=== PATIENT | female | born 1980 ===

== ENCOUNTER 2023-07-26 12:29 | Outpatient (CLI) | payer BC, SELFPAY ==
--- NOTE | ~2023-07-26 | MR_ITS ---
MRI of the right knee Clinical history: Medial meniscal tear Technique: Coronal proton density and proton density-weighted images, sagittal proton-density and T2 fat-sat images, and axial proton-density fat-saturated images were acquired. Findings: Anterior and posterior cruciate ligaments are intact. Medial collateral ligament and the la teral collateral ligament complex are intact. Popliteus tendon is intact. Medial and lateral menisci are intact, without evidence of tear. There is extensive high-grade contemplation of the medial compartment, with subchondral cystic change in the inner margin of the medial femoral condyle, and reactive marrow edema at the medial tibial pl ateau region. There is mild chondromalacia of the lateral compartment. Focal high-grade chondral fissure at the central aspect of the femoral trochlea. There is moderate to high-grade chondromalacia at the patellar apex extending over the medial patellar facet. Small trico mpartmental osteophytes are present. Extensor mechanism is intact. Small joint effusion present. No Stark's cyst. 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 No definite ligamentous injury or meniscal tear. Reviewed, dictated and finalized at [facility]. 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 No definite ligamentous injury or meniscal tear.
== END 2023-07-26 12:30 ==
LOC: MICIMG 12:31
PROVIDERS: PCP Orthopaedic Surgery; Visit Provider Orthopaedic Surgery
DX: S83.231A Complex tear of medial meniscus, current injury, right knee, initial encounter (principal); M17.11 Unilateral primary osteoarthritis, right knee
CPT/HCPCS: 73721